=== PATIENT | female | born 2000 | race Caucasian/White ===

== ENCOUNTER 2025-07-19 05:20 | Emergency (ER) | payer OTHER ==
[~2025-07-19] VITALS: Ht 160 cm; Wt 62.1 kg
[2025-07-19 06:10] LABS: APPEARANCE,URINE CLOUDY (CLEAR); BLOOD, URINE 3+ Ery/uL (NEGATIVE); LEUKOCYTE ESTERASE ,URINE 3+ (NEGATIVE); NITRITE, URINE NEGATIVE (NEGATIVE); UGLUCOSE NEGATIVE (NEGATIVE)
[2025-07-19 06:11] LABS: PREGNANCY TEST URINE QUAL NEGATIVE (NEGATIVE)
[2025-07-19] MEDS ORDERED: SULFAMETH/TRIMETH 800/160 MG 1 UDTAB TABLET ONE (06:21)
[2025-07-19] MEDS ORDERED: SULF1TAB48 PO (06:21)
[2025-07-19] MEDS: SULFAMETH/TRIMETH 800/160 MG 1 UDTAB TABLET PO ONE (06:26)
[2025-07-19 06:27] LABS: ADD URINE CULTURE YES; SQUAMOUS EPITHELIAL CELL,UR 0-2 /HPF (None Seen)
[2025-07-19] MEDS ORDERED: ONDA4TAB11 PO (06:27)
[2025-07-19 06:37] VITALS: BP 102/64; TEMP 98.7; O2SAT 99
== END 2025-07-19 06:37 | disposition home or self-care (01) ==
LOC: ER 05:25
DX: N12 Tubulo-interstitial nephritis, not specified as acute or chronic (principal)
CPT/HCPCS: 81001; 84703-TC; 87086-TC; 87186-TC